=== PATIENT | male | born 1980 | race Native Hawaiian/Other Pacific Islander ===

== ENCOUNTER 2020-10-31 20:19 | Emergency (ER) | payer BC ==
[2020-10-31 21:09] VITALS: BP 133/82; PULSE 85; RESP 18; TEMP 98.4
[2020-10-31] MEDS ORDERED: LIDOCAINE 1% INJ 10MG/ML (20 ML MDV) SQ ONE (21:12)
[2020-10-31] MEDS ORDERED: DIPH,PERTUS(ACELL)TETVAC-LF 0.5 ML VIAL IM ONE (21:12)
--- NOTE | 2020-10-31 21:39 | XR ---
PROCEDURE: XR wrist complete LT - 4V DATE AND TIME: 10/31/2020 9:25 PM CLINICAL INDICATION: PHH; laceration TECHNIQUE: Department protocol COMPARISON: None FINDINGS: There is soft tissue swelling anteriorly, with soft tissue laceration noted as a curvilinea r lucency. There is no radiopaque soft tissue foreign body; no soft tissue emphysema. The bones and joints are unremarkable. IMPRESSION: Soft tissue laceration/swelling.
[2020-10-31] MEDS ORDERED: BACITRACIN OINT 1 EACH PACKET TOPICAL STA (22:54)
--- NOTE | 2020-10-31 23:03 | ED ---
General Adult HPI - General Chief complaint: Wound/Laceration Stated complaint: L arm Laceration Time Seen by Provider: 10/31/20 20:49 Source: patient Mode of arrival: ambulatory - History of Present Illness Initial comments: 40-year-old male presents to the emergency room for chief complaint of laceration to the left wrist. Patient reports that he was trying to take an old furnace out of the garage. States it started to fall. He attempted to catch it. It cut his left inner wrist. Patient reports that this was on aluminum sheeting. Patient denies any difficulty moving his fingers. Denies numbess or tingling in the wrist hand or fingers. Patient does state it started to bleed at first however it has since stopped. Patient has no other complaints at this time including shortness of breath, chest pain, abdominal pain, nausea or vomiting, headache, or visual changes. - Related Data Allergies Allergy/AdvReac Type Severity Reaction Status Date / Time No Known Allergies Allergy Verified 10/31/20 21:03 Review of Systems ROS Statement: Those systems with pertinent positive or pertinent negative responses have been documented in the HPI. ROS Other: All systems not noted in ROS Statement are negative. Past Medical History Past Surgical History: Tonsillectomy Additional Past Surgical History / Comment(s): left testicle surgical procedure Past Psychological History: No Psychological Hx Reported Smoking Status: Former smoker Past Alcohol Use History: Occasional Past Drug Use History: Marijuana General Exam General appearance: alert, in no apparent distress Head exam: Present: atraumatic, normocephalic, normal inspection Eye exam: Present: normal appearance, PERRL, EOMI. Absent: scleral icterus, conjunctival injection, periorbital swelling ENT exam: Present: normal exam, mucous membranes moist Neck exam: Present: normal inspection, full ROM Respiratory exam: Present: normal lung sounds bilaterally. Absent: respiratory distress, wheezes, rales, rhonchi, stridor Cardiovascular Exam: Present: regular rate, normal rhythm, normal heart sounds. Absent: systolic murmur, diastolic murmur, rubs, gallop, clicks Extremities exam: Present: full ROM (Full range of motion of the left hand and all digits of the left hand. Full range of motion of the left wrist.), normal capillary refill (Capillary refill less than 2 seconds, radial pulse 2+ left upper extremity. Ulnar pulse 2+ left upper extremity.), other (Patient has a 3 centimeter laceration noted to the volar aspect of the ulnar left wrist. I do not see any deep structure involvement.) Course Vital Signs 10/31/20 21:08 Temperature 98.4 F Pulse Rate 85 Respiratory 18 Rate Blood Pressure 133/82 O2 Sat by Pulse 97 Oximetry Medical Decision Making - Medical Decision Making Vitals are stable. X-ray shows soft tissue swelling and laceration. No radiopaque foreign body noted. On inspection I do not see any tendon injury. Full range motion of all fingers and hand. Patient has ulnar pulse 2+ distal to laceration. There is no active bleeding in the ER. This was cleaned thoroughly and inspected for foreign bodies. It was repaired using interrupted sutures. Tetanus up-to-date. Discussed care parameters. Since returning for any worsening symptoms. Disposition Clinical Impression: Laceration Disposition: HOME SELF-CARE Condition: Good Instructions (If sedation given, give patient instructions): Laceration (ED) Additional Instructions: Please keep the area clean. Monitor for signs of infection such as spreading or streaking redness, drainage, or fever and return if these occur. Otherwise return in 7-10 days for suture removal. Is patient prescribed a controlled substance at d/c from ED?: No Referrals: Yaquelin Mccabe MD [REFERRING] - 1-2 days Time of Disposition: 23:02
== END 2020-10-31 23:06 | disposition home or self-care (01) ==
LOC: EC 20:19
DX: S61.512A Laceration without foreign body of left wrist, initial encounter (principal); F12.90 Cannabis use, unspecified, uncomplicated; Z87.891 Personal history of nicotine dependence; W26.8XXA Contact with other sharp object(s), not elsewhere classified, initial encounter; Y92.59 Other trade areas as the place of occurrence of the external cause
CPT/HCPCS: 73110; 90715; 99283; 90471; 12002; J2001